=== PATIENT | female | born 1965 | race Two or more races ===

== ENCOUNTER 2020-03-03 13:02 | Outpatient (CLI) | payer MEDICAID ==
[~2020-03-03] VITALS: Ht 175.3 cm; Wt 98.9 kg
[2020-03-03 13:20] VITALS: BP 140/87
--- NOTE | 2020-03-04 15:59 | Consultation ---
DATE OF CONSULTATION: 03/03/2020 GASTROENTEROLOGY CONSULTATION CONSULTING PHYSICIAN: Naseem Weaver MD. CHIEF COMPLAINT: Stool OB positive. PAST MEDICAL HISTORY: History of panic attacks, anxiety, ____, PTSD, back pain. PAST SURGICAL HISTORY: Appendectomy, . MEDICATIONS: Please see medication reconciliation list. FAMILY HISTORY: Noncontributory. SOCIAL HISTORY: The patient denies any tobacco, alcohol, or drug abuse. ALLERGIES: No known allergies. REVIEW OF SYSTEMS: The patient has some hemorrhoidal bleeding and hemorrhoidal pain. PHYSICAL EXAMINATION: VITAL SIGNS: She is afebrile. Height is 5 feet 9 inches, weight is 218. HEENT: Normocephalic and atraumatic. Sclerae are anicteric. NECK: Supple. No evidence of obvious lymphadenopathy. CARDIOVASCULAR: Regular rate and rhythm. Plus S1-S2. LUNGS: Clear to auscultation bilaterally. ABDOMEN: Soft, nontender. No rebound. No guarding. No peritoneal sign. EXTREMITIES: No cyanosis, no clubbing, no edema. ASSESSMENT AND PLAN: This is a 55-year-old female with stool OB positive. Given the stool is showing some blood, the patient also will benefit from an urgent endoscopy and colonoscopy. The patient was given instruction for both procedures. The risks and benefits were explained to her. We will schedule as soon as authorization is obtained. Naseem Weaver M.D. DR: ERIC JOB#: [id number] CC:
== END 2020-03-03 14:40 | disposition home or self-care (01) ==
LOC: PAN 13:02
DX: K92.1 Melena (principal); F41.9 Anxiety disorder, unspecified; Z90.89 Acquired absence of other organs
CPT/HCPCS: 99203